=== PATIENT | male | born 1980 | race Caucasian/White ===

== ENCOUNTER 2018-08-02 22:38 | Emergency (ER) | payer SELFPAY ==
[~2018-08-02] VITALS: Ht 167.6 cm; Wt 79.4 kg
[2018-08-02 22:38] VITALS: BP 150/107
--- NOTE | 2018-08-02 22:38 | NUR ---
38/M BIBA FOR CHEST PAIN, NONRADIATING X 20 MINS AGO. ALL LUNG SOUNDS CBTA, 18RR EVEN AND UNLABORED. SKIN IS WARM AND DRY, DENIES N/V. AOX4. PT ADMITS TO METH USE X 3 DAYS AGO. PMH: HTN
--- NOTE | 2018-08-02 22:38 | NUR ---
PATIENT BIB BLS TO ER BED 7.
--- NOTE | 2018-08-02 22:39 | NUR ---
EKG PERFORMED AT BEDSIDE, PT COVERED IN GOWN DURING PROCEDURE. NORMAL SINUS RHYTHM.
[2018-08-02] MEDS ORDERED: KETOROLAC 30 MG/ML VIAL IM ONE (23:00)
--- NOTE | 2018-08-02 23:15 | NUR ---
lab at bedside
[2018-08-02 23:25] LABS: BASOPHILS % (AUTO) 0.7 % (0.0-2.0); EOSINOPHILS % (AUTO) 0.8 % (0.0-4.0); HEMATOCRIT 42.9 % (36-52); HEMOGLOBIN 14.5 g/dL (12.0-18.0); LYMPHOCYTES % (AUTO) 32.4 % (20.5-51.1); MEAN CORPUSCULAR HEMOGLOBIN 30 pg (27-31); MEAN CORPUSCULAR HGB CONC 34 g/dL (33-37); MEAN CORPUSCULAR VOLUME 88.5 fL (80-94); MONOCYTES # (AUTO) 0.6 K/uL (0.8-1.0); MONOCYTES % (AUTO) 9.5 % (1.7-9.3); NEUTROPHILS # (AUTO) 3.4 K/uL (1.8-7.7); NEUTROPHILS % (AUTO) 56.6 % (42.2-75.2); PLATELET COUNT (AUTO) 186 K/uL (140-450); RED BLOOD CELL COUNT(AUTO) 4.84 MIL/uL (4.20-6.10); RED CELL DISTRIBUTION WIDTH 13.1 % (11.6-13.7); WHITE BLOOD COUNT (AUTO) 6.1 K/uL (4.8-10.8)
[2018-08-02 23:40] LABS: ALBUMIN 3.7 g/dL (3.4-5.0); ANION GAP 10.3 (8-16); CARBON DIOXIDE 30.4 mmol/L (21-32); CREATININE 1.2 mg/dL (0.7-1.3); POTASSIUM 3.7 mmol/L (3.5-5.1); TOTAL BILIRUBIN 0.7 mg/dL (0.0-1.0)
[2018-08-03 00:05] VITALS: BP 134/97
== END 2018-08-03 00:05 | disposition home or self-care (01) ==
LOC: MED 22:38
DX: R07.89 Other chest pain (principal); R06.02 Shortness of breath; I10 Essential (primary) hypertension
CPT/HCPCS: 36415; 71045; 80053; 81002; 84484; 85025; 93005; 96372; 99285; J1885; Q0092